=== PATIENT | female | born 1970 | race American Indian/Alaskan Native ===

== ENCOUNTER 2020-02-04 10:25 | Emergency (ER) | payer SELFPAY ==
[2020-02-04 10:33] VITALS: BP 127/72
--- NOTE | 2020-02-04 10:46 | Emergency Department Report ---
Blank Doc - Documentation Documentation: 49-year-old female that presents with n/v and abdominal pain. This initial assessment/diagnostic orders/clinical plan/treatment(s) is/are subject to change based on patient's health status, clinical progression and re- assessment by fellow clinical providers in the ED. Further treatment and workup at subsequent clinical providers discretion. Patient/guardians urged not to elope from the ED as their condition may be serious if not clinically assessed and managed. Initial orders include: 1- Patient sent to [facility] for further evaluation and treatment 2- labs 3- UA
[2020-02-04 11:57] LABS: Alanine Aminotransferase 9 units/L (7-56); Albumin 4.7 g/dL (3.9-5); Basophils % (Auto) 0.4 % (0.0-1.8); Blood Urea Nitrogen 11 mg/dL (7-17); Calcium 10.9 mg/dL (8.4-10.2); Eosinophils % (Auto) 0.1 % (0.0-4.3); Hematocrit 41.5 % (30.3-42.9); Hemolysis Index 10; Lymphocytes # (Auto) 4.1 K/mm3 (1.2-5.4); Lymphocytes % (Auto) 31.3 % (13.4-35.0); Mean Corpuscular HGB Conc 34 % (30-34); Mean Corpuscular Volume 96 fl (79-97); Monocytes # (Auto) 0.7 K/mm3 (0.0-0.8); Monocytes % (Auto) 5.6 % (0.0-7.3); Platelet Count 275 K/mm3 (140-440); Red Blood Count 4.31 M/mm3 (3.65-5.03); Red Cell Distribution Width 14.1 % (13.2-15.2)
[2020-02-04 11:58] LABS: BUN/Creatinine Ratio 16
[2020-02-04 13:07] LABS: Bacteria,Urine 1+ /HPF (Negative); Bilirubin,Urine NEG (Negative); Blood,Urine NEG (Negative); Color,Urine Yellow (Yellow); Mucus,Urine FEW /HPF; Protein,Urine <15 mg/dL mg/dL (Negative); Urobilinogen,Urine < 2.0 mg/dL (<2.0)
[2020-02-04] MEDS ORDERED: MORPHINE 4 MG/1 ML INJ IV ONE (13:28)
[2020-02-04] MEDS ORDERED: FAMOTIDINE 20 MG/2 ML INJ IV ONE (13:28)
[2020-02-04] MEDS ORDERED: ONDANSETRON 4 MG/2 ML INJ IV ONE (13:28)
[2020-02-04] MEDS ORDERED: SODIUM CHLORIDE 0.9% 1000 ML 1,000 ML IV ONE (13:28)
--- NOTE | 2020-02-04 15:23 | Cat Scan Report ---
CT ABDOMEN AND PELVIS WITH IV CONTRAST INDICATION: Epigastric abdominal pain. COMPARISON: None available. TECHNIQUE: All CT scans at this facility use dose modulation, automated exposure control, iterative reconstructi on or weight based dosing, when appropriate, to reduce radiation dose to as low as reasonably achieva ble. 100 cc Omnipaque 300 IV. FINDINGS: Lung Bases: No significant abnormality. Skeletal System: No acute abnormality. ABDOMEN: Liver: No significant abnormality. Gallbladder: No significant abnormality. Bile Ducts: No significant abnormality. Pancreas: No significant abnormality. Spleen: No significant abnormality. Adrenals: No significant abnormality. Right Kidney: No significant abnormality. Left Kidney: No significant abnormality. Upper GI tract: No dilated loops of small bowel are seen. Small bowel is fluid-filled but normal in c aliber. There is mild twisting of the mesentery within the lower abdomen (axial series 2 images 99-11 0). Lymph Nodes: No significant adenopathy. Aorta: No significant abnormality. Additional Findings: No significant abnormality. PELVIS: Colon: No acute abnormality. Urinary Bladder and Distal Ureters: No significant abnormality. Appendix: Nonvisualized Lymph Nodes: No significant adenopathy. Additional Findings: Somewhat elongate cystic structure is noted in the left hemipelvis. This measure s 4.4 cm on image 129. There is trace free fluid in the pelvis. IMPRESSION: 1. There is mild twisting of the mesentery in the central lower abdomen. Mild internal hernia could have this appearance. However, no small bowel dilatation is seen to suggest obstruction. 2. Somewhat elongated cystic structure in the left hemipelvis. While left ovarian cyst could have th is appearance, the appearance could be seen in the setting of hydrosalpinx. Signer Name: Shayan Guadalupe MD Signed: 02/04/2020 3:18 PM Workstation Name: [id number]
--- NOTE | 2020-02-04 18:02 | Emergency Department Report ---
<CANDACE OLIVEIRA - Last Filed: 02/04/20 20:03> ED Abdominal Pain HPI - General Chief Complaint: Abdominal Pain Stated Complaint: CP Time Seen by Provider: 02/04/20 10:45 - Related Data Previous Rx's Medication Instructions Recorded Last Taken Type Famotidine [Pepcid] 40 mg PO QHS #30 tablet 02/04/20 Unknown Rx Sucralfate [Carafate] 1 gm PO ACHS 7 Days #21 tablet 02/04/20 Unknown Rx Allergies Allergy/AdvReac Type Severity Reaction Status Date / Time No Known Allergies Allergy Verified 02/04/20 10:30 ED Past Medical Hx - Medications Home Medications: Home Medications Medication Instructions Recorded Confirmed Last Taken Type Famotidine [Pepcid] 40 mg PO QHS #30 tablet 02/04/20 Unknown Rx Sucralfate [Carafate] 1 gm PO ACHS 7 Days #21 tablet 02/04/20 Unknown Rx ED Medical Decision Making - Lab Data Result diagrams: 02/04/20 11:09 02/04/20 11:09 - Radiology Data Patient Name: KB SQUIRES Gender: Female Date of : 1970 Referring Provider: CHRIS WILLINGHAM Organization: [facility] Accession Number: [id number] Requested Date: February 04, 2020 15:29 Report Status: Final Requested Procedure: 1 Procedure Description: US pelvic complete Modality: US Findings Reporting MD: Shayan Guadalupe Dictation Time: February 04, 2020 18:10 Ingredient Scaler Helper: Not available Microfilmer Date: US pelvic complete INDICATION / CLINICAL INFORMATION: abd pain, abnormal CT left ovarian region. COMPARISON: CT earlier today. FINDINGS: Hysterectomy. Right ovary not visualized. There is a complex 3.8 cm left ovarian cyst. IMPRESSION: 1. 3.8 cm complex left ovarian cyst. Signer Name: Shayan Guadalupe MD Signed: 02/04/2020 6:10 PM Workstation Name: [id number] ED Disposition Clinical Impression: Epigastric abdominal pain Nausea & vomiting Qualifiers: Vomiting type: unspecified Vomiting Intractability: non-intractable Qualified Code(s): R11.2 - Nausea with vomiting, unspecified Ovarian cyst Qualifiers: Laterality: left Qualified Code(s): N83.202 - Unspecified ovarian cyst, left side Disposition: DC-01 TO HOME OR SELFCARE Condition: Undetermined Instructions: Ovarian Cyst (ED), Peptic Ulcer (ED), Gastritis (ED), Diet for Ulcers and Gastritis (ED), Gastroesophageal Reflux Disease (ED), Abdominal Pain (ED) Additional Instructions: Please take medication as prescribed. Please increase your water intake. Please eat a bland diet. Please follow the diet for acid reflux and ulcers. Please follow-up with a GI doctor. Please follow-up with a primary care doctor. Please follow-up with COGENERATION OPERATOR. Return to emergency room for any new or worsening symptoms. Prescriptions: Famotidine [Pepcid] 40 mg PO QHS #30 tablet Sucralfate [Carafate] 1 gm PO ACHS 7 Days #21 tablet Referrals: [facility] [Provider Group] - 2-3 Days ANTOINE MARINELLI MD [Staff Physician] - 2-3 Days MARTIN MARINELLI MD [Staff Physician] - 2-3 Days Forms: AMA Form Print Language: SLOVENIAN <CHRIS WILLINGHAM - Last Filed: 02/05/20 16:33> ED Abdominal Pain HPI - General Source: patient Mode of arrival: Ambulatory Limitations: No Limitations - History of Present Illness Initial Comments: Patient is a 49-year-old female presents emergency room complaints of epigastric abdominal pain that began at 4 AM this morning. She has associated nausea and vomiting. She states that she also feels a burning sensation. She states that she has had similar symptoms in the past but never this severe. She states that she does get it sometimes after she eats. She denies any diarrhea, fever, urinary symptoms. She states she had a normal bowel movement today. She has a past surgical history of appendectomy and partial hysterectomy. No allergies to medications. Severity scale (0 -10): 7 ED Review of Systems ROS: Stated complaint: CP Other details as noted in HPI Comment: All other systems reviewed and negative ED Past Medical Hx - Past Medical History Previous Medical History?: Yes Hx Psychiatric Treatment: Yes (DEPRESSION) Additional medical history: ACID REFLUX - Surgical History Past Surgical History?: No - Social History Smoking Status: Never Smoker Substance Use Type: Alcohol, Marijuana ED Physical Exam - General Limitations: No Limitations General appearance: alert, in no apparent distress - Head Head exam: Present: atraumatic, normocephalic - Eye Eye exam: Present: normal appearance - ENT ENT exam: Present: mucous membranes moist - Respiratory Respiratory exam: Present: normal lung sounds bilaterally. Absent: respiratory distress, wheezes, rales, rhonchi, stridor, chest wall tenderness, accessory muscle use, decreased breath sounds, prolonged expiratory - Cardiovascular Cardiovascular Exam: Present: regular rate, normal rhythm, normal heart sounds. Absent: systolic murmur, diastolic murmur, rubs, gallop - GI/Abdominal GI/Abdominal exam: Present: soft, tenderness (epigastric), normal bowel sounds. Absent: distended, guarding, rebound, rigid - Neurological Exam Neurological exam: Present: alert, oriented X3 - Psychiatric Psychiatric exam: Present: normal affect, normal mood - Skin Skin exam: Present: warm, dry, intact ED Course Vital Signs 02/04/20 02/04/20 02/04/20 10:30 14:00 14:16 Temperature 97.7 F Pulse Rate 61 Respiratory 16 18 18 Rate Blood Pressure 127/72 [Left] O2 Sat by Pulse 96 99 Oximetry 02/04/20 20:05 Temperature Pulse Rate 53 L Respiratory 100 H Rate Blood Pressure [Left] O2 Sat by Pulse Oximetry - Reevaluation(s) Reevaluation #1: 02/04/20 15:[address] Esquivel, ER attending including patient presentation, laboratory results, CT findings, he advised to order an ultrasound due to CT findings, on reexamination of patient her pain has completely resolved and she is feeling much better, pelvic ultrasound placed ED Medical Decision Making - Lab Data Result diagrams: 02/04/20 11:09 02/04/20 11:09 Lab Results 02/04/20 02/04/20 02/04/20 Range/Units 11:09 11:09 11:09 WBC 13.0 H (4.5-11.0) K/mm3 RBC 4.31 (3.65-5.03) M/mm3 Hgb 14.0 (10.1-14.3) gm/dl Hct 41.5 (30.3-42.9) % MCV 96 (79-97) fl MCH 32 (28-32) pg MCHC 34 (30-34) % RDW 14.1 (13.2-15.2) % Plt Count 275 (140-440) K/mm3 Lymph % (Auto) 31.3 (13.4-35.0) % [place] % (Auto) 5.6 (0.0-7.3) % Eos % (Auto) 0.1 (0.0-4.3) % Baso % (Auto) 0.4 (0.0-1.8) % Lymph # 4.1 (1.2-5.4) K/mm3 [place] # 0.7 (0.0-0.8) K/mm3 Eos # 0.0 (0.0-0.4) K/mm3 Baso # 0.0 (0.0-0.1) K/mm3 Seg Neutrophils % 62.6 (40.0-70.0) % Seg Neutrophils # 8.1 H (1.8-7.7) K/mm3 Sodium 142 (137-145) mmol/L Potassium 4.2 (3.6-5.0) mmol/L Chloride 102.5 (98-107) mmol/L Carbon Dioxide 25 (22-30) mmol/L Anion Gap 19 mmol/L BUN 11 (7-17) mg/dL Creatinine 0.7 (0.6-1.2) mg/dL Estimated GFR > 60 ml/min BUN/Creatinine Ratio 16 % Glucose 93 (65-100) mg/dL Calcium 10.9 H (8.4-10.2) mg/dL Total Bilirubin 0.70 (0.1-1.2) mg/dL AST 18 (5-40) units/L ALT 9 (7-56) units/L Alkaline Phosphatase 71 (35-129) units/L Troponin T (0.00-0.029) ng/mL Total Protein 7.6 (6.3-8.2) g/dL Albumin 4.7 (3.9-5) g/dL Albumin/Globulin Ratio 1.6 % Lipase 17 (13-60) units/L HCG, Qual Negative (Negative) Urine Color (Yellow) Urine Turbidity (Clear) Urine pH (5.0-7.0) Ur Specific [place] (1.003-1.030) Urine Protein (Negative) mg/dL Urine Glucose (UA) (Negative) mg/dL Urine Ketones (Negative) mg/dL Urine Blood (Negative) Urine Nitrite (Negative) Urine Bilirubin (Negative) Urine Urobilinogen (<2.0) mg/dL Ur Leukocyte Esterase (Negative) Urine WBC (Auto) (0.0-6.0) /HPF Urine RBC (Auto) (0.0-6.0) /HPF U Epithel Cells (Auto) (0-13.0) /HPF Urine Bacteria (Auto) (Negative) /HPF Urine Mucus /HPF 02/04/20 02/04/20 Range/Units 12:40 13:50 WBC (4.5-11.0) K/mm3 RBC (3.65-5.03) M/mm3 Hgb (10.1-14.3) gm/dl Hct (30.3-42.9) % MCV (79-97) fl MCH (28-32) pg MCHC (30-34) % RDW (13.2-15.2) % Plt Count (140-440) K/mm3 Lymph % (Auto) (13.4-35.0) % [place] % (Auto) (0.0-7.3) % Eos % (Auto) (0.0-4.3) % Baso % (Auto) (0.0-1.8) % Lymph # (1.2-5.4) K/mm3 [place] # (0.0-0.8) K/mm3 Eos # (0.0-0.4) K/mm3 Baso # (0.0-0.1) K/mm3 Seg Neutrophils % (40.0-70.0) % Seg Neutrophils # (1.8-7.7) K/mm3 Sodium (137-145) mmol/L Potassium (3.6-5.0) mmol/L Chloride (98-107) mmol/L Carbon Dioxide (22-30) mmol/L Anion Gap mmol/L BUN (7-17) mg/dL Creatinine (0.6-1.2) mg/dL Estimated GFR ml/min BUN/Creatinine Ratio % Glucose (65-100) mg/dL Calcium (8.4-10.2) mg/dL Total Bilirubin (0.1-1.2) mg/dL AST (5-40) units/L ALT (7-56) units/L Alkaline Phosphatase (35-129) units/L Troponin T < 0.010 (0.00-0.029) ng/mL Total Protein (6.3-8.2) g/dL Albumin (3.9-5) g/dL Albumin/Globulin Ratio % Lipase (13-60) units/L HCG, Qual (Negative) Urine Color Yellow (Yellow) Urine Turbidity Clear (Clear) Urine pH 9.0 H (5.0-7.0) Ur Specific [place] 1.017 (1.003-1.030) Urine Protein <15 mg/dl (Negative) mg/dL Urine Glucose (UA) Neg (Negative) mg/dL Urine Ketones Tr (Negative) mg/dL Urine Blood Neg (Negative) Urine Nitrite Neg (Negative) Urine Bilirubin Neg (Negative) Urine Urobilinogen < 2.0 (<2.0) mg/dL Ur Leukocyte Esterase Neg (Negative) Urine WBC (Auto) 1.0 (0.0-6.0) /HPF Urine RBC (Auto) 4.0 (0.0-6.0) /HPF U Epithel Cells (Auto) 1.0 (0-13.0) /HPF Urine Bacteria (Auto) 1+ (Negative) /HPF Urine Mucus Few /HPF - EKG Data EKG shows normal: sinus rhythm, axis, QRS complexes, ST-T waves Rate: bradycardia (56 bpm) - EKG Data 02/04/20 18:00 very mild prolonged CA interval at 205 no STEMI - Radiology Data Radiology results: report reviewed CT ABDOMEN AND PELVIS WITH IV CONTRAST INDICATION: Epigastric abdominal pain. COMPARISON: None available. TECHNIQUE: All CT scans at this facility use dose modulation, automated exposure control, iterative reconstruction or weight based dosing, when appropriate, to reduce radiation dose to as low as reasonably achievable. 100 cc Omnipaque 300 IV. FINDINGS: Lung Bases: No significant abnormality. Skeletal System: No acute abnormality. ABDOMEN: Liver: No significant abnormality. Gallbladder: No significant abnormality. Bile Ducts: No significant abnormality. Pancreas: No significant abnormality. Spleen: No significant abnormality. Adrenals: No significant abnormality. Right Kidney: No significant abnormality. Left Kidney: No significant abnormality. Upper GI tract: No dilated loops of small bowel are seen. Small bowel is fluid- filled but normal in caliber. There is mild twisting of the mesentery within the lower abdomen (axial series 2 images 99- 110). Lymph Nodes: No significant adenopathy. Aorta: No significant abnormality. Additional Findings: No significant abnormality. PELVIS: Colon: No acute abnormality. Urinary Bladder and Distal Ureters: No significant abnormality. Appendix: Nonvisualized Lymph Nodes: No significant adenopathy. Additional Findings: Somewhat elongate cystic structure is noted in the left hemipelvis. This measures 4.4 cm on image 129. There is trace free fluid in the pelvis. IMPRESSION: 1. There is mild twisting of the mesentery in the central lower abdomen. Mild internal hernia could have this appearance. However, no small bowel dilatation is seen to suggest obstruction. 2. Somewhat elongated cystic structure in the left hemipelvis. While left ovarian cyst could have this appearance, the appearance could be seen in the setting of hydrosalpinx. Signer Name: Shayan Guadalupe MD Signed: 02/04/2020 3:18 PM Workstation Name: [id number] Transcribed By: PAYAL Dictated By: Shayan Guadalupe MD Electronically Authenticated By: Shayan Guadalupe MD Signed Date/Time: 02/04/201517 DD/ 11 TD/TT: - Medical Decision Making Patient is a 49-year-old female presents emergency room complaints of epigastric abdominal pain that began at 4 AM this morning. She has associated nausea and vomiting. She states that she also feels a burning sensation. She states that she has had similar symptoms in the past but never this severe. She states that she does get it sometimes after she eats. She denies any diarrhea, fever, urinary symptoms. She states she had a normal bowel movement today. She has a past surgical history of appendectomy and partial hysterectomy. No allergies to medications. vitals are normal. pts repeat vitals were entered incorrectly, it says the RR is 100, when it should be the oxygen saturation is 100. On exam patient has epigastric tenderness palpation, no guarding, no rebound, no rigidity, normal bowel sounds. Labs with mildly elevated white blood cell count of 13,000. Troponin is negative. UA without evidence of UTI. EKG with sinus bradycardia very mild prolonged CA interval at 205, no STEMI. CT abd pelvis: 1. There is mild twisting of the mesentery in the central lower abdomen. Mild internal hernia could have this appearance. However, no small bowel dilatation is seen to suggest obstruction. 2. Somewhat elongated cystic structure in the l eft hemipelvis. While left ovarian cyst could have this appearance, the appearance could be seen in the setting of hydrosalpinx. Discussed case with Dr. Esquivel, ER attending including patient presentation, laboratory results, CT findings, he advised to order an ultrasound due to CT findings, on reexamination of patient her pain has completely resolved and she is feeling much better, pelvic ultrasound placed. pelvic US: IMPRESSION: 1. 3.8 cm complex left ovarian cyst. Patient was given Pepcid, morphine, Zofran, 1 L IV fluids and symptoms completely improved, her pain resolved, she had no further episodes of vomiting, she was able to tolerate p.o. intake without difficulty. Discussed all results with patient and answered questions. She will be referred to GI and COGENERATION OPERATOR. do not suspect bowel obstruction as pt is able to tolerate PO intake and had a normal BM today and is passing gas. pt given prescription for pepcid and carafate. advised pt Please take medication as prescribed. Please increase your water intake. Please eat a bland diet. Please follow the diet for acid reflux and ulcers. Please follow-up with a GI doctor. Please follow-up with a primary care doctor. Please follow-up with COGENERATION OPERATOR. Return to emergency room for any new or worsening symptoms. - Differential Diagnosis PUD, GERD, SBO, pancreatitis, cholecystitis, gastritis, cholelithiasis Critical care attestation.: If time is entered above; I have spent that time in minutes in the direct care of this critically ill patient, excluding procedure time. ED Disposition Is pt being admited?: No Does the pt Need Aspirin: No Time of Disposition: 19:57
--- NOTE | 2020-02-05 08:16 | Ultrasound Report ---
US pelvic complete INDICATION / CLINICAL INFORMATION: abd pain, abnormal CT left ovarian region. COMPARISON: CT earlier today. FINDINGS: Hysterectomy. Right ovary not visualized. There is a complex 3.8 cm left ovarian cyst. IMPRESSION: 1. 3.8 cm complex left ovarian cyst. Signer Name: Shayan Guadalupe MD Signed: 02/04/2020 7:10 PM Workstation Name: [id number]
== END 2020-02-04 20:05 | disposition home or self-care (01) ==
LOC: ED 10:25
DX: N83.202 Unspecified ovarian cyst, left side (principal)
CPT/HCPCS: 36415; 74177; 76856; 80053; 81001; 83690; 84484; 84703; 85025; 93005; 96361; 96374; 96375; 99284; J2270; J2405; J7030; Q9967